=== PATIENT | female | born 1960 | race Caucasian/White ===

== ENCOUNTER 2023-11-15 09:43 | Emergency (ER) | payer OTHER ==
[~2023-11-15] VITALS: Ht 157.5 cm; Wt 83.0 kg
[~2023-11-15 09:43] MED LIST: LEVO-65 MT; METR-167 MT; TRAM50TA3 MT
[2023-11-15 09:49] VITALS: O2SAT 97
[2023-11-15 14:30] VITALS: TEMP 37.00296
[2023-11-15 20:25] VITALS: BP 119/71; PULSE 63; RESP 14; O2SAT 97
== END 2023-11-15 20:26 | disposition home or self-care (01) ==
LOC: ER 09:43
DX: T85.698A Other mechanical complication of other specified internal prosthetic devices, implants and grafts, initial encounter (principal); I10 Essential (primary) hypertension; E11.9 Type 2 diabetes mellitus without complications; Z90.49 Acquired absence of other specified parts of digestive tract
CPT/HCPCS: 99285; Z7610 ×3

== ENCOUNTER 2025-03-03 16:29 | Emergency (ER) | payer OTHER ==
[~2025-03-03] VITALS: Ht 167.6 cm; Wt 75.0 kg
[2025-03-03 16:30] VITALS: O2SAT 100
[2025-03-03 17:07] LABS: BASOPHILS % 1.3 % (0.0-2.0); EOSINOPHILS % 0.1 % (0.0-5.0); HEMATOCRIT. 39.6 % (36.0-48.0); HEMOGLOBIN. 13.3 g/dL (12.0-16.0); LYMPHOCYTES % 24.6 % (20.0-50.0); MEAN PLATELET VOLUME 10.8 fl (7.4-10.4); MONOCYTES % 5.9 % (2.0-8.0); NEUTROPHILS % 68.1 % (40.0-76.0); PLATELET 241 x1000/uL (130-400); RED BLOOD CELL COUNT 4.33 mill/uL (4.2-5.4); RED CELL DISTRIBUTION WIDTH 14.1 % (11.6-14.6)
[2025-03-03 17:19] LABS: CREATININE 0.9 mg/dL (0.6-1.0); UREA NITROGEN BLOOD 24 mg/dL (9-23)
[2025-03-03 17:20] LABS: PROTEIN TOTAL 7.3 g/dL (6.0-8.3); TROPONIN I HIGH SENSITIVITY < 4 ng/L (3.0-34)
[2025-03-03 17:21] LABS: ASPARTATE AMINOTRANSFERASE 22 IU/L (<34); BILIRUBIN DIRECT 0.2 mg/dL (<=3.0); BILIRUBIN TOTAL 0.6 mg/dL (0.1-1.0)
[2025-03-03] MEDS: MORPHINE SULFATE 4 MG/ML INJ (FOR IV/IM USE) IV ONE (17:46)
[2025-03-03] MEDS: SODIUM CHLORIDE 0.9% 1,000 ML IV ONE (17:47)
[2025-03-03] MEDS: KETOROLAC 15MG/ML VIAL IV ONE (17:47)
[2025-03-03] MEDS: METOCLOPRAMIDE HCL 10MG/2ML VIAL IV ONE (17:47)
[2025-03-03] MEDS ORDERED: METO-293 MT (18:22)
[2025-03-03] MEDS ORDERED: IBUP-2030 MT (18:22)
[2025-03-03 23:18] VITALS: BP 110/55; PULSE 65; RESP 12; TEMP 36.7; O2SAT 96
== END 2025-03-03 23:32 | disposition home or self-care (01) ==
LOC: ER 16:29 → CMPBEDREQ 23:36
DX: R11.2 Nausea with vomiting, unspecified (principal); G89.18 Other acute postprocedural pain; E78.00 Pure hypercholesterolemia, unspecified; E11.9 Type 2 diabetes mellitus without complications; I10 Essential (primary) hypertension; Z90.49 Acquired absence of other specified parts of digestive tract
CPT/HCPCS: 80076; 80048; 83880; 83735; 85025; 84484; 36415; 71045; 73562; 96361; 96374; 96375; 99285; J1885; J2765; J2270; J7030; Z7610